=== PATIENT | male | born 1995 | race Hispanic/Latino ===

== ENCOUNTER 2021-03-19 14:47 | Emergency (ER) | payer BC, SELFPAY ==
--- NOTE | ~2021-03-19 | XR_ITS ---
EXAMINATION: XR chest 1V EXAM DATE: 03/19/2021 16:19 INDICATION: SOB, COVID +. TECHNIQUE: Portable AP frontal chest x-ray was obtained. There is no prior study for comparison. FINDINGS: Patchy ill-defined bibasilar airspace disease, appearance is consistent with acute stage CO VID pneumonia although not specific for that. Mid and upper lung zones are clear. There is no pneumot horax suspected. There are no pleural effusions. Cardiomediastinal silhouette is normal. IMPRESSION: Ill-defined bibasilar pneumonia. Reviewed, dictated and finalized at location A.
--- NOTE | ~2021-03-19 | CT_ITS ---
EXAMINATION: CTA chest PE protocol EXAM DATE: 03/19/2021 19:16 INDICATION: sob, pleuritic chest pain, elevated dimer, covid + . TECHNIQUE: Spiral CTA of the chest (pulmonary arteries) was performed with 100 cc Omnipaque 350 intr avenous contrast injection. Images were acquired during the pulmonary arterial phase. Coronal maxi mum intensity projection 3D-reconstructions were created by the technologist on dedicated workstation . Axial, coronal and sagittal reformatted images were reviewed. The dose-length product (DLP) for t his examination was 398.79 mGy-cm. The exposure was tailored according to patient size (auto mA exp osure control), and iterative reconstruction (ASIR) was used as additional dose reduction technique. There is no prior study for comparison. FINDINGS: Pulmonary arteries are well opacified and without intraluminal filling defects. No thora cic aortic dissection. There is moderate amount of bibasilar groundglass opacity with some subpleura l banding posteriorly, some atelectasis. Likely acute infectious process, could be COVID pneumonia. C alcified left hilar lymph node measuring 1.2 x 1.8 cm, from prior granulomatous process. There are n o pleural or pericardial effusions. Tracheobronchial tree is patent. There is no pneumothorax. Heart normal in size. No evidence of coronary arterial calcification. Upper abdomen is unremarkabl e. There is thoracic spondylosis without osteoblastic or osteolytic lesions identified. IMPRESSION: 1. Moderate amount of bibasilar acute airspace disease likely pneumonia. 2. No pulmonary emboli. Reviewed, dictated and finalized at location A.
--- NOTE | 2021-03-19 14:50 | ECG_ITS ---
Measurements Intervals [facility] Rate: 77 P: 64 ID: [id number] QRS: 63 QRSD: 114 T: 18 QT: 378 QTc: 430 Interpretive Statements SINUS RHYTHM INCOMPLETE RIGHT BUNDLE BRANCH BLOCK BASELINE WANDER- I, III, V1-V2 BORDERLINE ECG Electronically Signed On 03-19-2021 15:14:47 CDT by Sohail Trujillo D.O.
[2021-03-19 15:05] VITALS: BP 112/79; PULSE 83; RESP 14; TEMP 36.4; O2SAT 99
[2021-03-19 15:18] LABS: Basophils Percent Auto 0.3 % (0.2-1.2); Eosinophils Percent Auto 0.3 % (0-4.4); Hematocrit 47.4 % (42.0-52.0); Hemoglobin 16.1 g/dL (14.0-18.0); Immature Granulocyte Absolute 0.02 K/mm3 (0.00-0.031); Immature Granulocyte Percent A 0.5 % (0-0.5); Lymphocytes Absolute Auto 1.55 K/mm3 (0.9-3.2); Lymphocytes Percent Auto 40.5 % (18.3-44.2); Mean Corpuscular Hemoglobin 27.9 pg (26-34); Mean Corpuscular Volume 82.1 fl (80-100); Mean Platelet Volume 9.9 fl (7.4-10.4); Monocytes Absolute Auto 0.4 K/mm3 (0.1-0.6); Neutrophils Absolute Auto 1.8 K/mm3 (1.3-6.7); Neutrophils Percent Auto 47.4 % (45.5-73.1); Platelet Count Result 233 k/mm3 (150-375); Red Blood Count 5.77 M/mm3 (4.6-6.20); Red Cell Distribution Width 13.2 % (11.5-14.5); White Blood Count 3.8 K/mm3 (4.5-10.0)
[2021-03-19 15:29] LABS: Anion Gap 10 mmol/L (8-16); Blood Urea Nitrogen 15 mg/dL (9-20); Calcium 8.9 mg/dL (8.4-10.2); Carbon Dioxide 31 mmol/L (22-30); Chloride 96 mmol/L (98-107); Estimated CRCL calculation 114 ml/min; Estimated Glomerular Filt Rate > 60; Glucose 105 mg/dL (65-110); Potassium 3.3 mmol/L (3.4-5.0); Sodium 137 mmol/L (137-145)
--- NOTE | 2021-03-19 17:39 | ED.SOB ---
HPI - SOB/Dyspnea General Chief Complaint: Shortness of Breath/Dyspnea Stated Complaint: covid/diff breathing Time Seen by Provider: 03/19/21 16:52 Source: patient Mode of arrival: ambulatory Limitations: no limitations History of Present Illness HPI Narrative: This is a 25-year-old male that presents to the emergency department for shortness of breath x4 days. Reports he was diagnosed with Covid 1 week ago. Reports over the weekend he started to feel short of breath and having worsening cough. Reports associated pleuritic chest pain. Reports nausea, vomiting, diarrhea and fevers. He did not get the Covid vaccine. Denies lower extremity edema. Related Data Allergies Allergy/AdvReac Type Severity Reaction Status Date / Time No Known Allergies Allergy Verified 03/19/21 17:37 Review of Systems Review of Systems: Narrative: CONSTITUTIONAL: Reports fever CARDIOVASCULAR: Reports chest pain. Denies edema. RESPIRATORY: Reports cough and dyspnea. GASTROINTESTINAL: Reports nausea, vomiting, and diarrhea. All systems reviewed & are unremarkable except as noted in HPI and below PMFSH Past Medical History Medical History (Updated 03/19/21 @ 19:37 by Rody Portillo PA-C) No active medical problems Social History Social History (Updated 03/19/21 @ 17:42 by Rody Portillo PA-C) Smoking status: Never smoker Exam Narrative: Exam Narrative: GENERAL: Well-appearing, well-nourished, and in no acute distress. HEAD: Normocephalic, atraumatic. EYES: EOMI. ENT: Nares clear, no rhinorrhea or epistaxis. Mucous membranes moist. Oropharynx without tonsillar hypertrophy exudate or other lesions. Bilateral TMs pearly connor non-bulging NECK: Supple. No adenopathy or masses. CHEST: Clear to auscultation. No respiratory distress. No wheezes rales or rhonchi HEART: Regular rate and rhythm. No murmur heard. Normal peripheral pulses. ABDOMEN: Soft, nontender, nondistended, normal active bowel sounds. EXTREMITIES: Normal range of motion. No edema. SKIN: Warm, dry, no rash. NEURO: No focal deficits. Alert and oriented x3. PSYCH: Normal mood and affect Course Vital Signs Vital signs: Vital Signs Temperature 97.6 F 03/19/21 15:05 Pulse Rate 83 03/19/21 15:05 Respiratory Rate 14 03/19/21 15:05 Blood Pressure 112/79 03/19/21 15:05 Pulse Oximetry 99 03/19/21 15:05 Temperature 97.6 F 03/19/21 15:05 Pulse Rate 62 03/19/21 21:06 Respiratory Rate 19 03/19/21 21:06 Blood Pressure 114/70 03/19/21 21:06 Pulse Oximetry 100 03/19/21 21:06 MDM - SOB/Dyspnea MDM Narrative Medical decision making narrative: Patient presents to the ER for ongoing cold symptoms and shortness of breath. He is afebrile nontoxic-appearing. Oxygen saturation has remained normal on room air. CBC without concerning findings. Metabolic panel with mild hypokalemia. Patient given dose of potassium in the ED. Patient reporting pleuritic chest pain and shortness of breath with recent diagnosis of Covid. EKG without concerning changes. Baseline troponin is negative. D-dimer was elevated, so CTA of the chest was obtained. Shows no evidence of pulmonary emboli. Does show moderate amount of basilar acute airspace disease. Patient and family updated on case findings. Instructed on continued care of viral infection. He is to follow-up with primary care doctor. He was given warnings to return to the ER Lab Data Attestation: I reviewed the patient's lab results. Result diagrams: 03/19/21 15:10 03/19/21 15:10 Labs: Lab Results 03/19/21 03/19/21 03/19/21 Range/Units 15:10 15:10 15:10 WBC 3.8 L (4.5-10.0) K/mm3 RBC 5.77 (4.6-6.20) M/mm3 Hgb 16.1 (14.0-18.0) g/dL Hct 47.4 (42.0-52.0) % MCV 82.1 (80-100) fl MCH 27.9 (26-34) pg MCHC 34.0 (32-36) g/dl RDW 13.2 (11.5-14.5) % Plt Count 233 (150-375) k/mm3 MPV 9.9 (7.4-10.4) fl Immature Gran % (Auto) 0.5 (0-0.5) % Mike
[2021-03-19 17:45] VITALS: BP 110/76; PULSE 71; RESP 20; O2SAT 100
[2021-03-19] MEDS: ONDANSETRON INJ 4 MG/2 ML VIAL IV PUSH (17:57)
[2021-03-19] MEDS: SODIUM CHLORIDE 0.9% IV 1,000 ML 999 ML IV CONT (17:58)
[2021-03-19 18:16] LABS: Partial Thromboplastin Time 31.2 SECONDS (22.3-36.8); Prothrombin Time 13.1 Seconds (11.1-14.7)
[2021-03-19 18:19] LABS: D Dimer 0.56 ug/mL (<0.48)
--- NOTE | 2021-03-19 18:31 | PC.NURSE ---
added on a Hepatic, Trop I Baseline, and Lip at 17:00 --- still was on mobi so I called again at 18:31 to add on specimens again
[2021-03-19 18:34] VITALS: BP 109/63; PULSE 68; RESP 14; O2SAT 99
[2021-03-19 18:44] LABS: Alanine Aminotransferase 86 U/L (4-50); Albumin Level 4.3 g/dL (3.5-5.1); Alkaline Phosphatase 76 U/L (38-126); Aspartate Amino Transferase 76 U/L (17-59); Bilirubin,Total 0.6 mg/dL (0.2-1.3); Lipase 161 U/L (23-300)
[2021-03-19 18:55] LABS: Troponin I < 0.012 ng/mL (0.000-0.034)
[2021-03-19 19:27] VITALS: BP 116/57; PULSE 66; RESP 21; O2SAT 98
[2021-03-19] MEDS: POTASSIUM CHLORIDE 20 MEQ PACKET (FOR LIQUID) 40 MEQ PO (20:13)
[2021-03-19 21:06] VITALS: BP 114/70; PULSE 62; RESP 19; O2SAT 100
== END 2021-03-19 21:45 | disposition home or self-care (01) ==
PROVIDERS: Emergency Medicine; Physician Assistant; Emergency Provider Family Medicine
DX: U07.1 COVID-19 (principal); J12.82 Pneumonia due to coronavirus disease 2019; I45.10 Unspecified right bundle-branch block
CPT/HCPCS: 36415; 71045; 71275; 80048; 80076; 83690; 84484; 85025; 85380; 85610; 85730; 93005; 96361; 96365; 96375; 99284; A9270; J0131; J2405; J7030; Q9967